=== PATIENT | male | born 1975 | race Caucasian/White ===

== ENCOUNTER 2016-09-24 17:09 | Emergency (ER) | payer BC ==
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
[2016-09-24 17:29] VITALS: BP 116/71
--- NOTE | 2016-09-25 09:08 | CR ---
Right hand: Four views of the right hand were obtained. Comparison: No previous study. Deformity is seen within the head as well as base of the fifth metacarpal compatible with old healed fractures. Joint spaces are preserved within the right hand. No acute fracture, dislocation or other bony abnormality is seen. Impression: 1. Old healed fractures within the fifth metacarpal. 2. Nothing acute is appreciated on right hand exam. Diagnostic code #2
== END 2016-09-24 18:30 | disposition home or self-care (01) ==
LOC: JD.ED 17:09
DX: S69.91XA Unspecified injury of right wrist, hand and finger(s), initial encounter (principal); F17.210 Nicotine dependence, cigarettes, uncomplicated; Z88.5 Allergy status to narcotic agent; W19.XXXA Unspecified fall, initial encounter
CPT/HCPCS: 73130-26-RT; 73130-RT; 99283; 99284

== ENCOUNTER 2016-09-25 13:50 | Emergency (ER) | payer BC ==
[2016-09-25 14:11] VITALS: BP 120/73
[2016-09-25] MEDS ORDERED: Lidocaine 1% 10 ML MDV INJECT ONE (14:37)
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
== END 2016-09-25 16:35 | disposition home or self-care (01) ==
LOC: JD.ED 13:50
DX: S61.512A Laceration without foreign body of left wrist, initial encounter (principal); Z88.5 Allergy status to narcotic agent; F17.210 Nicotine dependence, cigarettes, uncomplicated; W45.8XXA Other foreign body or object entering through skin, initial encounter
CPT/HCPCS: 12002; 99283-25

== ENCOUNTER 2016-12-21 17:55 | Emergency (ER) | payer BC ==
[2016-12-21 18:12] VITALS: BP 138/105
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
--- NOTE | 2016-12-22 09:10 | CR ---
Right ankle: Four views of the right ankle were obtained. Comparison: Previous right ankle study of 05/10/15. Two cannulated screws are seen within the medial malleolus. Ankle mortise is symmetric. Small calcifications are noted off the inferior medial and lateral malleolus compatible with old injury. No acute fracture or other bony abnormality is seen. There is a metallic foreign body within the foot at the level of the distal metatarsals. Impression: 1. Small metallic foreign body at the level of the distal metatarsals. 2. Old injury as described above. 3. No acute abnormality is identified on right ankle exam. Diagnostic code #2
== END 2016-12-21 18:50 | disposition home or self-care (01) ==
LOC: JD.ED 17:55
DX: S93.421A Sprain of deltoid ligament of right ankle, initial encounter (principal); F17.210 Nicotine dependence, cigarettes, uncomplicated; Z88.5 Allergy status to narcotic agent; X50.0XXA Overexertion from strenuous movement or load, initial encounter
CPT/HCPCS: 73610-26-RT; 73610-RT; 99284

== ENCOUNTER 2017-02-28 17:58 | Emergency (ER) | payer BC ==
[2017-02-28 18:33] VITALS: BP 123/82
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
--- NOTE | 2017-03-01 07:18 | CR ---
Chest and right ribs: Frontal view of the chest was obtained as well as three views of the right ribs. Comparison: Prior chest x-ray of 09/03/15. Heart size and mediastinum are normal. Lungs are clear. No discrete fracture or other right sided rib abnormality is appreciated. Impression: 1. No discrete right sided rib abnormality. Nothing acute is seen on accompanying chest x-ray. Diagnostic code #1
== END 2017-02-28 20:18 | disposition home or self-care (01) ==
LOC: JD.ED 17:58
DX: S20.211A Contusion of right front wall of thorax, initial encounter (principal); F17.210 Nicotine dependence, cigarettes, uncomplicated; Z88.5 Allergy status to narcotic agent; W20.8XXA Other cause of strike by thrown, projected or falling object, initial encounter
CPT/HCPCS: 71101-26-RT; 71101-RT; 99283; 99284-25

== ENCOUNTER 2017-05-01 14:17 | Emergency (ER) | payer BC ==
[2017-05-01 14:34] VITALS: BP 124/84
[2017-05-01] MEDS ORDERED: Acetaminophen 325 MG Tab PO ONE (14:50)
[2017-05-01] MEDS ORDERED: Ibuprofen 600 MG Tab PO ONE (14:51)
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
--- NOTE | 2017-05-01 15:54 | CR ---
Chest and right ribs: Frontal view of the chest is obtained as well as two views of the right ribs. Comparison: Prior chest x-ray and right rib study of 02/28/17. Heart size and mediastinum are normal. Lungs are clear. No pneumothorax is appreciated. No acute rib fracture is appreciated. Minimal scoliosis is noted within the spine. Slight deformity of the distal right clavicle is seen. Impression: 1. Slight deformity of the distal right clavicle compatible with old injury which is stable from previous study. 2. Slight scoliosis within the spine. 3. Nothing acute is seen on frontal chest x-ray. No acute rib abnormality is appreciated. Diagnostic code #2
== END 2017-05-01 16:20 | disposition home or self-care (01) ==
LOC: JD.ED 14:17
DX: S20.211A Contusion of right front wall of thorax, initial encounter (principal); Z88.5 Allergy status to narcotic agent; F17.210 Nicotine dependence, cigarettes, uncomplicated; W19.XXXA Unspecified fall, initial encounter
CPT/HCPCS: 71101; 99283; A9270

== ENCOUNTER 2017-09-26 17:25 | Emergency (ER) | payer BC, OTHER ==
[2017-09-26 17:47] VITALS: BP 158/86
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
--- NOTE | 2017-09-27 07:32 | CR ---
Right hand: Four views of the right hand were obtained. Comparison: Previous right hand exam of 09/24/16. Deformity is noted within the distal and proximal fifth metacarpal compatible with old fracture deformity. Joint spaces are fairly well preserved. No acute bony abnormality is appreciated. Impression: 1. Old healed injury as noted above. Nothing acute is appreciated on right hand study. No significant change from previous study is seen. Diagnostic code #2
== END 2017-09-26 18:45 | disposition home or self-care (01) ==
LOC: JD.ED 17:25
DX: S60.221A Contusion of right hand, initial encounter (principal); Z88.8 Allergy status to other drugs, medicaments and biological substances; X50.9XXA Other and unspecified overexertion or strenuous movements or postures, initial encounter
CPT/HCPCS: 73130-26-RT; 73130-RT; 99283

== ENCOUNTER 2017-10-08 08:52 | Emergency (ER) | payer OTHER ==
[2017-10-08 09:07] VITALS: BP 120/104
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
== END 2017-10-08 09:49 | disposition home or self-care (01) ==
LOC: JD.ED 08:52
DX: L08.9 Local infection of the skin and subcutaneous tissue, unspecified (principal); F17.210 Nicotine dependence, cigarettes, uncomplicated; Z88.8 Allergy status to other drugs, medicaments and biological substances
CPT/HCPCS: 87070; 87077; 87186; 99283

== ENCOUNTER 2019-02-09 12:59 | Emergency (ER) | payer OTHER ==
[2019-02-09 13:11] VITALS: BP 142/92; PULSE 101
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
== END 2019-02-09 14:01 | disposition home or self-care (01) ==
LOC: JD.ED 12:59
DX: R07.81 Pleurodynia (principal); F17.210 Nicotine dependence, cigarettes, uncomplicated; Z88.5 Allergy status to narcotic agent
CPT/HCPCS: 99283; 99284

== ENCOUNTER 2019-05-31 02:13 | Emergency (ER) | payer OTHER ==
[2019-05-31 02:25] VITALS: BP 113/84; PULSE 99
[2019-05-31] MEDS ORDERED: FLU Vacc QS2019-20(6MOS+)/PF 60 MCG/0.5 ML SYRINGE IM ONE (03:00)
--- NOTE | 2019-05-31 03:03 | EDM.PDOC ---
ED HPI GENERAL MEDICAL PROBLEM - General Chief Complaint: Skin Complaint Stated Complaint: INFECTION IN NOSE AND LIP Time Seen by Provider: 05/31/19 02:46 Source of Information: Reports: Patient History Limitations: Reports: No Limitations - History of Present Illness INITIAL COMMENTS - FREE TEXT/NARRATIVE: Mr. Carson is a pleasant 43-year-old man with a past medical history significant for depression and opioid addiction, currently prescribed [place] and oxycodone per his PCP, but with numerous presentations to this ED for drug- seeking purposes, who now presents to the ED stating that he popped a pimple just inside his left nostril on , 05/28/2019. Since then, he has had increased pain and swelling to his nose and upper lip despite taking some leftover amoxicillin 500 mg po BID. he reports fever and chills, however, here in the ED, the patient is found to be hemodynamically stable, afebrile, saturating 95% on room air. At present, the patient is complaining of a bad headache, and states that he would just like to sleep. The patient acknowledges that he has some antibacterial soap at home, although he states that he does not use it exclusively. He does not recall being told in the past that he has had MRSA. The patient's PCP is Dr. David Ngo. He did not receive an influenza vaccine this season, but agreed to receive one here today. Nose Pain Score (Numeric/FACES): 6 - Related Data Allergies Allergy/AdvReac Type Severity Reaction Status Date / Time tramadol AdvReac Nausea Verified 05/31/19 02:46 Home Meds: Home Meds Escitalopram [Lexapro] 10 mg PO DAILY 02/06/19 [History] Cephalexin [Keflex] 1 cap PO Q6H #28 capsule 05/31/19 [Rx] Hydrocodone/Acetaminophen [Hydrocodon-Acetaminophn 10-325] 1 tab PO QID PRN [History] Past Medical History Respiratory History: Reports: Pneumothorax Musculoskeletal History: Reports: Fracture (right ankle) Psychiatric History: Reports: Addiction (opioids), Depression - Past Surgical History HEENT Surgical History: Reports: Oral Surgery (3 wisdom teeth extracted) Musculoskeletal Surgical History: Reports: ORIF (right ankle), Other (See Below ) (Right hand tendon repair around 2002) Social & Family History - Family History Family Medical History: Noncontributory - Tobacco Use Smoking Status *Q: Current Every Day Smoker Years of Tobacco use: 24 Packs/Tins Daily: 0.5 Packs/Tins Daily Comment: Down from / ppd - Caffeine Use Caffeine Use: Reports: Coffee, Energy Drinks - Alcohol Use Alcohol Use History: No - Recreational Drug Use Recreational Drug Use: Yes Drug Use in Last 12 Months: Yes Recreational Drug Type: Reports: Marijuana/Hashish (last smoked 22 yrs old), Other (see below) (Taked Rx'd oxycodone & [place] in excess of Rx) - Living Situation & Occupation Living situation: Reports: Single, with Significant Other (Girlfriend), with Family (Daughter + son) 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 Musculoskeletal: Reports: Back Pain (chronic) ED EXAM, SKIN/RASH Exam: See Below Exam Limited By: No Limitations General Appearance: Alert, WD/WN, No Apparent Distress Eye Exam: Bilateral Eye: EOMI, Normal Inspection Ears: Normal External Exam, Hearing Grossly Normal Nose: Other (Mild swelling and erythema to the bilateral nares, extending to the midline upper lip) Throat/Mouth: Normal Inspection, Normal Lips, Normal Voice, No Airway Compromise Head: Atraumatic, Normocephalic Course - Vital Signs Last Recorded V/S: Last Vital Signs Temp 37.6 C 05/31/19 02:22 Pulse 99 05/31/19 02:22 Resp 20 05/31/19 02:22 BP 113/84 05/31/19 02:22 Pulse Ox 95 05/31/19 02:22 - Orders/Labs/Meds Orders: Active Orders 24 hr Category Date Time Status Influenza Vaccine Charge [RC] .DISCHARGE Care 05/31/19 02:54 Active Labs: Laboratory Tests 05/31/19 Range/Units 03:00 MRSA (PCR) Negative Meds: Medications Discontinued Medications Generic Name Dose Route Start Last Admin Trade Name Freq PRN Reason Stop Dose Admin Ibuprofen 600 mg 05/31/19 03:18 05/31/19 03:22 Motrin PO 05/31/19 03:19 600 mg ONETIME ONE Administration Influenza Virus Vaccine 60 mcg 05/31/19 03:00 03/15/20 03:13 Fluzone Quad [id number] Syringe IM 05/31/19 03:01 60 mcg .ONCE ONE Administration - Re-Assessments/Exams Free Text/Narrative Re-Assessment/Exam: 05/31/19 02:54 The patient may have a bit of cellulitis in the vicinity of his nose and upper lip. Amoxicillin should have covered normal skin chasity, and if it has not, that suggests that perhaps he is colonized with MRSA. I have therefore ordered an MRSA screen by PCR, which takes about 1 hour 20 minutes to run. The patient is willing to wait. I will direct further antibiotic coverage based on those results. 05/31/19 04:19 The patient's MRSA screen has returned negative. I will start the patient on Keflex, and prescribe a 7-day course. Departure - Departure Time of Disposition: 04:21 Disposition: Home, Self-Care 01 Condition: Good Clinical Impression: Cellulitis of nose, external - Discharge Information *PRESCRIPTION DRUG MONITORING PROGRAM REVIEWED*: Not Applicable *COPY OF PRESCRIPTION DRUG MONITORING REPORT IN PATIENT RESHMA: Not Applicable Referrals: David Ngo Jr, MD [Primary Care Provider] - Forms: ED Department Discharge Additional Instructions: You were seen for redness and swelling to the opening to your nose and to your upper lip, after popping a pimple in your nose on 05/28/2019. Work-up in the ER included an MRSA screen, which returned negative. Based on your history and physical exam, you are suffering from cellulitis. You have been started on the antibiotic Keflex, and a prescription for Keflex has been sent to the [facility], located just south and across the [address] from [facility]. Take 1 capsule of Keflex every 6 hours, as prescribed. Finish the entire 7-day prescription unless told otherwise by a doctor. As discussed, we strongly recommend that you throw any remaining amoxicillin into the trash. Do not flush it down the toilet or wash it down the drain. Keep your face, including your nose and lip, clean with ordinary soap and water. As discussed, we strongly recommend that you discard any antibacterial soap, as antibacterial soap increases the risk of you becoming colonized with MRSA. If your symptoms persist, please follow-up with your PCP, Dr. David Ngo. If your symptoms worsen, please do not hesitate to return to the ER. Sepsis Event Note - Evaluation Sepsis Screening Result: No Definite Risk - Focused Exam Vital Signs: Vital Signs Temp Pulse Resp BP Pulse Ox 05/31/19 02:22 37.6 C 99 20 113/84 95 Date Exam was Performed: 05/31/19 Time Exam was Performed: 04:18 - My Orders Last 24 Hours: My Active Orders 05/31/19 02:54 Influenza Vaccine Charge [RC] .DISCHARGE - Assessment/Plan Last 24 Hours: My Active Orders 05/31/19 02:54 Influenza Vaccine Charge [RC] .DISCHARGE
[2019-05-31] MEDS ORDERED: Ibuprofen 600 MG Tab PO ONE (03:18)
[2019-05-31] MEDS ORDERED: Cephalexin 500 MG Cap PO STA (04:18)
== END 2019-05-31 04:38 | disposition home or self-care (01) ==
LOC: JD.ED 02:13
DX: J34.0 Abscess, furuncle and carbuncle of nose (principal); F32.9 Major depressive disorder, single episode, unspecified; Z88.5 Allergy status to narcotic agent; Z79.899 Other long term (current) drug therapy; F17.210 Nicotine dependence, cigarettes, uncomplicated; Z98.890 Other specified postprocedural states
CPT/HCPCS: 87641; 90471; 90686; 99283; A9270; G0008